=== PATIENT | male | born 1955 | race Caucasian/White ===

== ENCOUNTER 2017-06-03 09:41 | Emergency (ER) | payer MEDICARE, MEDICAID ==
[2017-06-03 11:00] LABS: BASO # 0.1 10^3/uL (0.0-0.2); BASO % 0.6 % (0.0-1.0); EOS # 0.3 10^3/uL (0.0-0.50); EOS % 2.6 % (0.0-3.0); HEMATOCRIT 43.6 % (42.0-52.0); HEMOGLOBIN 14.8 g/dl (14.0-18.0); IMMATURE GRANULOCYTE % 0.7 % (0-3.0); LYMPH # 1.5 10^3/uL (1.5-4.5); LYMPH % 15.8 % (24.0-44.0); MEAN CORPUSCULAR HEMOGLOBIN 27.7 pg (27.0-33.0); MEAN CORPUSCULAR HGB CONC 33.9 g/dl (32.0-36.5); MEAN CORPUSCULAR VOLUME 81.5 fl (80.0-96.0); MONO # 0.8 10^3/uL (0.0-0.8); MONO % 8.2 % (0.0-5.0); NEUTROPHILS % 72.1 % (36.0-66.0); PLATELET COUNT, AUTOMATED 219 10^3/uL (150-450); RED BLOOD COUNT 5.35 10^6/uL (4.30-6.10); RED CELL DISTRIBUTION WIDTH 12.9 % (11.5-14.5); WHITE BLOOD COUNT 9.7 10^3/uL (4.0-10.0)
[2017-06-03 11:31] LABS: ALBUMIN 3.4 GM/DL (3.2-5.2); ALBUMIN/GLOBULIN RATIO 0.81 (1.00-1.93); ALKALINE PHOSPHATASE 108 U/L (45-117); ALT/SGPT 17 U/L (12-78); ANION GAP 7 MEQ/L (8-16); AST/SGOT 10 U/L (7-37); BILIRUBIN,TOTAL 0.7 MG/DL (0.2-1.0); BLOOD UREA NITROGEN 24 MG/DL (7-18); CARBON DIOXIDE LEVEL 29 MEQ/L (21-32); CHLORIDE LEVEL 96 MEQ/L (98-107); CREATININE FOR GFR 1.66 MG/DL (0.70-1.30); GLOMERULAR FILTRATION RATE 45.2 (>49); GLUCOSE, FASTING 231 MG/DL (70-100); POTASSIUM SERUM 4.3 MEQ/L (3.5-5.1); SODIUM LEVEL 132 MEQ/L (136-145); TOTAL PROTEIN 7.6 GM/DL (6.4-8.2)
== END 2017-06-03 13:03 | disposition home or self-care (01) ==
LOC: M ED 09:41
DX: K56.7 Ileus, unspecified (principal); I10 Essential (primary) hypertension; E11.9 Type 2 diabetes mellitus without complications; G47.30 Sleep apnea, unspecified; K21.9 Gastro-esophageal reflux disease without esophagitis; I25.2 Old myocardial infarction; F41.9 Anxiety disorder, unspecified; Z79.4 Long term (current) use of insulin; Z79.82 Long term (current) use of aspirin; Z79.899 Other long term (current) drug therapy; Z88.1 Allergy status to other antibiotic agents; Z98.890 Other specified postprocedural states; Z87.19 Personal history of other diseases of the digestive system; Z87.442 Personal history of urinary calculi; Z87.448 Personal history of other diseases of urinary system
CPT/HCPCS: 74021

== ENCOUNTER 2017-07-01 16:06 | Emergency (ER) | payer MEDICARE, MEDICAID ==
[2017-07-01] MEDS: CYCLOBENZAPRINE 10 MG TAB PO (17:00)
[2017-07-01] MEDS: IBUPROFEN 600 MG TAB PO (17:00)
== END 2017-07-01 17:08 | disposition home or self-care (01) ==
LOC: M ED 16:06
DX: S39.012A Strain of muscle, fascia and tendon of lower back, initial encounter (principal); W10.9XXA Fall (on) (from) unspecified stairs and steps, initial encounter; Y92.89 Other specified places as the place of occurrence of the external cause; E11.9 Type 2 diabetes mellitus without complications; I10 Essential (primary) hypertension; K21.9 Gastro-esophageal reflux disease without esophagitis; Z88.1 Allergy status to other antibiotic agents; Z79.4 Long term (current) use of insulin; Z79.899 Other long term (current) drug therapy; Z79.82 Long term (current) use of aspirin
CPT/HCPCS: 99283

== ENCOUNTER 2017-09-17 09:15 | Day surgery (SDC) | payer MEDICARE, MEDICAID ==
[~2017-09-17 09:15] MED LIST: NS 1,000 ML IV
[2017-09-17] MEDS ORDERED: PROPOFOL 200 MG/20 ML VIAL As Ordered ×2 (12:00)
[2017-09-17] MEDS ORDERED: fentaNYL 100 MCG/2 ML INJECTION (J3010) As Ordered (12:19)
[2017-09-17] MEDS ORDERED: LIDOCAINE 2% INJ 100 MG/5 ML SDV (FOR ANES.) As Ordered (12:21)
== END 2017-09-17 13:28 | disposition home or self-care (01) ==
LOC: M OPP 09:15
DX: Z12.11 Encounter for screening for malignant neoplasm of colon (principal); Z86.010 Personal history of colon polyps; D13.1 Benign neoplasm of stomach; G47.30 Sleep apnea, unspecified; I10 Essential (primary) hypertension; F41.9 Anxiety disorder, unspecified; N40.0 Benign prostatic hyperplasia without lower urinary tract symptoms; E10.40 Type 1 diabetes mellitus with diabetic neuropathy, unspecified; Z79.4 Long term (current) use of insulin; Z79.82 Long term (current) use of aspirin; Z79.899 Other long term (current) drug therapy; Z96.41 Presence of insulin pump (external) (internal); Z90.49 Acquired absence of other specified parts of digestive tract; Z80.3 Family history of malignant neoplasm of breast; Z83.3 Family history of diabetes mellitus; Z82.49 Family history of ischemic heart disease and other diseases of the circulatory system
CPT/HCPCS: G0105

== ENCOUNTER 2018-04-05 11:39 | Emergency (ER) | payer MEDICARE, MEDICAID ==
[~2018-04-05] VITALS: Ht 188 cm; Wt 165.9 kg
[~2018-04-05 11:39] MED LIST changes: +/BACTSSTA PO; +/DOXA1TA; +ACET500T15 PO; +ACET50TA PO; +ALBU17IN INH; +AMBI10TA PO; +ASPI1TAB PO; +ASPI81TA7 PO; +ASPI81TA83; +ATEN100T PO; +BACT800T5 PO; +BASA100I SC; +CARD240T3 PO; +CARD300C4 PO; +CARV25TA PO; +CEPA0.1S MT; +CYCL10TA PO; +DILT240C47 PO; +HUMA100I SC; +HYDR-3363 PO; +HYDR-3910 PO; +HYDR25TA8 PO; +INSULANT SC; +LANTINJ4 SC; +LASI20TA3 PO; +LEVO750T PO; +LISI10TA4 PO; +LISI2.5T PO; +LISI20TA PO; +METF1000 PO; +METF500T4; +MONT10TA2 PO; +MUCI600T37 PO; +NAPR-50 PO; +NOVOINJ3 SC; -NS 1,000 ML IV; +OMEP20CA3 PO; +TYLE325T5 PO; +ZANT150T; +ZEST10TA5 PO; +ZOLP-189 PO; +cardura
[2018-04-05] MEDS ORDERED: VITA50005 PO (12:18)
[2018-04-05] MEDS ORDERED: MECLIZINE 25 MG TABLET PO ONE (12:30)
[2018-04-05] MEDS ORDERED: NS 1,000 ML IV ONE (12:30)
--- NOTE | 2018-04-05 12:58 | REP ---
CT Head without contrast HISTORY: Syncope COMPARISON: None Areas of decreased attenuation are present in the periventricular and subcortical white matter. This represents small-vessel ischemic disease. There is no intraparenchymal hemorrhage, acute infarct, mass or midline shift. The ventricular system and cortical sulci are dilated consistent with minimal volume loss. There is no extra cerebral collection. There is no fracture. The visualized sinuses are clear. IMPRESSION: 1. Small vessel ischemic disease. 2. Minimal volume loss. Electronically Signed by Francisco Mark MD 04/05/2018 12:50 P
--- NOTE | 2018-04-05 13:15 | REP ---
Chest x-ray: Single view. History: Syncope, near-syncope. Comparison chest x-ray: June 03, 2017. Findings: The lungs are mildly hyperinflated but free of infiltrate. Pleural angles are sharp. Heart size is normal. Pulmonary vasculature is not increased. No significant bony abnormality. Impression: No acute disease. Electronically Signed by Remington Emery MD 04/05/2018 07:16 P
[2018-04-05 14:01] LABS: BASO # 0.1 10^3/uL (0.0-0.2); BASO % 0.6 % (0.0-1.0); EOS # 0.2 10^3/uL (0.0-0.50); HEMATOCRIT 43.4 % (42.0-52.0); HEMOGLOBIN 14.9 g/dl (13.5-17.5); LYMPH # 1.5 10^3/uL (1.5-4.5); LYMPH % 15.3 % (24.0-44.0); MEAN CORPUSCULAR HEMOGLOBIN 28.4 pg (27.0-33.0); MEAN CORPUSCULAR HGB CONC 34.3 g/dl (32.0-36.5); MEAN CORPUSCULAR VOLUME 82.8 fl (80.0-96.0); MONO # 0.7 10^3/uL (0.0-0.8); MONO % 7.3 % (0.0-5.0); NEUTROPHILS # 7.2 10^3/uL (1.8-7.7); NEUTROPHILS % 74.3 % (36.0-66.0); PLATELET COUNT, AUTOMATED 215 10^3/uL (150-450); RED BLOOD COUNT 5.24 10^6/uL (4.30-6.10); WHITE BLOOD COUNT 9.7 10^3/uL (4.0-10.0)
[2018-04-05 14:13] LABS: INR 0.98; PROTHROMBIN TIME 13.1 SECONDS (12.1-14.4)
[2018-04-05 14:43] LABS: BLOOD UREA NITROGEN 26 MG/DL (7-18); CARBON DIOXIDE LEVEL 30 MEQ/L (21-32); CHLORIDE LEVEL 95 MEQ/L (98-107); CPK CREATINE PHOSPHOKINASE 71 U/L (39-308); CREATININE FOR GFR 1.78 MG/DL (0.70-1.30); GLOMERULAR FILTRATION RATE 41.6 (>49); GLUCOSE, FASTING 245 MG/DL (70-100); MB/CK RELATIVE INDEX 2.68 (< OR =4); SODIUM LEVEL 131 MEQ/L (136-145); TROPONIN I < 0.02 NG/ML (< 0.10)
[2018-04-05 15:21] VITALS: BP 151/86
--- NOTE | 2018-04-05 17:15 | ECGEPIP ---
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
== END 2018-04-05 15:35 | disposition home or self-care (01) ==
LOC: M ED 11:39
DX: R55 Syncope and collapse (principal); I10 Essential (primary) hypertension; E11.9 Type 2 diabetes mellitus without complications; I25.10 Atherosclerotic heart disease of native coronary artery without angina pectoris; K21.9 Gastro-esophageal reflux disease without esophagitis; Z79.899 Other long term (current) drug therapy; Z79.82 Long term (current) use of aspirin; Z79.4 Long term (current) use of insulin; Z88.1 Allergy status to other antibiotic agents

== ENCOUNTER → 2018-10-24 | Outpatient (REF) | payer MEDICARE, MEDICAID ==
[~2018-10-24] MED LIST changes: -/BACTSSTA PO; -/DOXA1TA; -ACET50TA PO; -ASPI1TAB PO; +ASPI81TA26 PO; +CARD1TAB4; +MAPA500T17 PO; -NAPR-50 PO; +NAPR-837 PO; +OMEP20CA4 PO; +SULF1TAB31 PO; +VITA50005 PO
== END ==
LOC: M LAB REF 18:32
PROVIDERS: ATTEND Podiatrist
DX: L03.039 Cellulitis of unspecified toe (principal); M79.672 Pain in left foot

== ENCOUNTER 2018-12-25 21:15 | Emergency (ER) | payer MEDICARE, MEDICAID ==
[~2018-12-25] VITALS: Ht 188 cm; Wt 165.9 kg
[~2018-12-25 21:15] MED LIST changes: -LISI20TA PO; +LISI20TA19 PO; +OMEP1CAP73 PO; -OMEP20CA4 PO
[2018-12-25] MEDS ORDERED: MUCI600T31 PO (21:24)
[2018-12-25] MEDS ORDERED: LANTINJ4 SC (21:24)
[2018-12-26] MEDS ORDERED: FLON1SPR NARES (00:27)
[2018-12-26] MEDS ORDERED: ACETAMINOPHEN 325 MG TAB PO ONE (00:30)
[2018-12-26 00:38] VITALS: BP 137/80
--- NOTE | 2018-12-26 00:51 | REP ---
Clinical: Cough and fever with sore throat . Comparison: 04/05/2018 . Technique: PA and lateral. Findings: The mediastinum and cardiac silhouette are normal. The lung vega demonstrate chronic-appearing changes without acute consolidation, effusion, or pneumothorax. The skeletal structures are intact and normal. Impression: 1. No acute cardiopulmonary process. Electronically Signed by Santiago Morley MD 12/26/2018 12:44 A
== END 2018-12-26 00:39 | disposition home or self-care (01) ==
LOC: M ED 21:15
DX: J06.9 Acute upper respiratory infection, unspecified (principal); B34.9 Viral infection, unspecified; J01.90 Acute sinusitis, unspecified; R09.81 Nasal congestion; R05 Cough; I25.2 Old myocardial infarction; E11.9 Type 2 diabetes mellitus without complications; Z87.442 Personal history of urinary calculi; Z79.82 Long term (current) use of aspirin; Z79.4 Long term (current) use of insulin; Z79.899 Other long term (current) drug therapy; Z88.8 Allergy status to other drugs, medicaments and biological substances; J30.89 Other allergic rhinitis

== ENCOUNTER 2019-01-16 06:27 | Day surgery (SDC) | payer MEDICARE, MEDICAID ==
[~2019-01-16] VITALS: Ht 188 cm; Wt 166.0 kg
[~2019-01-16 06:27] MED LIST changes: +FLON1SPR NARES; +MUCI600T31 PO; +NS 1,000 ML IV ONE; -OMEP1CAP73 PO; +OMEP20CA4 PO
[2019-01-16] MEDS ORDERED: LIDOCAINE 2% INJ 100 MG/5 ML SDV (FOR ANES.) As Ordered ONE ×2 (09:05→09:43)
[2019-01-16] MEDS ORDERED: PROPOFOL 200 MG/20 ML VIAL As Ordered ONE ×2 (09:05→09:43)
--- NOTE | 2019-01-16 10:03 | ROOR ---
Patient Name: Jeanmarie Shultz Procedure Date: 01/16/2019 9:30 AM Date of : 1955 Age: 63 Room: [facility] Gender: Male Note Status: Finalized Procedure: Upper GI endoscopy Indications: Surveillance for malignancy due to personal history of gastric adenoma (follow up on prepyloric adenomatous polyp 2017) Providers: Duke BEJARANO MD Referring MD: PADMA BINGHAM NP Requesting Provider: Medicines: Monitored Anesthesia Care Complications: No immediate complications. Procedure: Pre-Anesthesia Assessment: - The heart rate, respiratory rate, oxygen saturations, blood pressure, adequacy of pulmonary ventilation, and response to care were monitored throughout the procedure. The Endoscope was introduced through the mouth, and advanced to the second part of duodenum. The upper GI endoscopy was accomplished without difficulty. The patient tolerated the procedure well. Findings: The examined esophagus was normal. A single 6 mm semi-sessile polyp was found in the prepyloric region of the stomach. The polyp was removed with a hot snare. Resection and retrieval were complete. To prevent bleeding after the polypectomy, one hemostatic clip was successfully placed. A single 8 mm semi-sessile polyp was found at the incisura. The polyp was removed with a hot snare. Resection and retrieval were complete. To prevent bleeding after the polypectomy, one hemostatic clip was successfully placed. A single 12 mm pedunculated polyp with stigmata of recent bleeding was found in the gastric body. The polyp was removed with a hot snare. Resection and retrieval were complete. To prevent bleeding after the polypectomy, two hemostatic clips were successfully placed. There was no bleeding at the end of the procedure. Impression: - A single gastric polyp (residual 5-6 mm sessile, prepyloric). Resected and retrieved. Clip was placed. - A single gastric polyp. (8 mm,semipedunculated, incisura). Resected and retrieved. Clip was placed. - A single gastric polyp. (12 mm ,pedunculated, hemorrhagic appearing, body of stomach). Resected and retrieved. Clips were placed. - Normal Esophagus. - Normal Duodenum. Recommendation: - Telephone endoscopist for pathology results in 2 weeks. - Repeat upper endoscopy for surveillance based on pathology results. - Await pathology results. Duke Bejarano MD Duke BEJARANO MD 01/16/2019 10:03:17 AM Electronically signed by Duke BEJARANO MD Number of Addenda: 0 Note Initiated On: 01/16/2019 9:30 AM Estimated Blood Loss: Estimated blood loss: none.
[2019-01-16 10:30] VITALS: BP 158/73
== END 2019-01-16 14:18 | disposition home or self-care (01) ==
LOC: M OPP 06:27
PROVIDERS: ATTEND Internal Medicine Gastroenterology
DX: K31.7 Polyp of stomach and duodenum (principal); Z86.018 Personal history of other benign neoplasm; I10 Essential (primary) hypertension; K21.9 Gastro-esophageal reflux disease without esophagitis; E11.9 Type 2 diabetes mellitus without complications; Z79.4 Long term (current) use of insulin; Z79.82 Long term (current) use of aspirin; Z79.899 Other long term (current) drug therapy; Z88.8 Allergy status to other drugs, medicaments and biological substances

== ENCOUNTER → 2020-10-05 | Outpatient (REF) | payer MEDICARE, MEDICAID ==
[~2020-10-05] MED LIST changes: +CYCL-707 PO; -CYCL10TA PO; -LISI20TA19 PO; +LISI20TA35 PO; +MONT10TA10 PO; -MONT10TA2 PO; -NS 1,000 ML IV ONE; +OMEP1CAP73 PO; -OMEP20CA4 PO
== END ==
LOC: M LAB REF 17:16
PROVIDERS: ATTEND Internal Medicine Nephrology
DX: N18.31 Chronic kidney disease, stage 3a (principal); E11.22 Type 2 diabetes mellitus with diabetic chronic kidney disease; I12.9 Hypertensive chronic kidney disease with stage 1 through stage 4 chronic kidney disease, or unspecified chronic kidney disease

== ENCOUNTER → 2020-11-03 | Outpatient (CLI) | payer MEDICARE, MEDICAID ==
--- NOTE | 2020-11-03 16:59 | REP ---
INDICATION: HYPERTENSIVE CKD, DIABETES. COMPARISON: 06/07/2010. TECHNIQUE: Real-time sonographic evaluation of the kidneys is performed. FINDINGS: There is diffuse cortical thickening of the left kidney, with diffuse increased echotexture, suggesting medical renal disease.. There is no hydronephrosis bilaterally. There is a cyst of the upper left kidney measuring 2.6 x 2.4 x 2.4 cm. The right kidney measures 13.5 x 6.4 x 6.0 cm. Left renal dimensions are 12.9 x 5.4 x 5.4 cm. Urinary bladder is empty. IMPRESSION: No hydronephrosis bilaterally. Diffuse increased echotexture of the left kidney with cortical thinning. Left renal cyst 2.6 cm. <Electronically signed by Nicholas Houston > 11/03/20 [id number]
== END ==
LOC: M RAD 14:44
PROVIDERS: ATTEND Internal Medicine Nephrology
DX: I12.9 Hypertensive chronic kidney disease with stage 1 through stage 4 chronic kidney disease, or unspecified chronic kidney disease (principal); N18.32 Chronic kidney disease, stage 3b; E11.22 Type 2 diabetes mellitus with diabetic chronic kidney disease; N28.1 Cyst of kidney, acquired

== ENCOUNTER 2020-11-27 11:53 | Observation (INO) | payer MEDICARE, MEDICAID ==
[~2020-11-27] VITALS: Ht 188 cm; Wt 154.2 kg
[2020-11-27 13:53] LABS: BASO % 0.3 % (0.0-1.0); EOS % 0.1 % (0.0-3.0); HEMATOCRIT 43.4 % (42.0-52.0); HEMOGLOBIN 14.7 g/dl (13.5-17.5); LYMPH # 0.4 10^3/uL (1.5-5.0); LYMPH % 5.9 % (24.0-44.0); MEAN CORPUSCULAR HEMOGLOBIN 27.9 pg (27.0-33.0); MEAN CORPUSCULAR HGB CONC 33.9 g/dl (32.0-36.5); MEAN CORPUSCULAR VOLUME 82.4 fl (80.0-96.0); MONO # 0.5 10^3/uL (0.0-0.8); MONO % 7.4 % (2.0-8.0); NEUTROPHILS # 6.3 10^3/uL (1.5-8.5); NEUTROPHILS % 85.2 % (36.0-66.0); PLATELET COUNT, AUTOMATED 193 10^3/uL (150-450); RED BLOOD COUNT 5.27 10^6/uL (4.30-6.10); WHITE BLOOD COUNT 7.3 10^3/uL (4.0-10.0)
[2020-11-27 14:32] LABS: CALCIUM LEVEL 7.8 MG/DL (8.8-10.2); CREATININE FOR GFR 2.52 MG/DL (0.70-1.30); GLOMERULAR FILTRATION RATE 27.6 (>49); POTASSIUM SERUM 3.9 MEQ/L (3.5-5.1)
[2020-11-27 14:33] LABS: ALBUMIN 2.9 GM/DL (3.2-5.2); BILIRUBIN,TOTAL 1.5 MG/DL (0.2-1.0); MAGNESIUM LEVEL 1.6 MG/DL (1.8-2.4); TOTAL PROTEIN 6.8 GM/DL (6.4-8.2)
[2020-11-27] MEDS ORDERED: NS 1,000 ML IV ONE (14:35)
[2020-11-27] MEDS ORDERED: HumuLIN R (REGULAR) INSULIN (NovoLIN R) **100U/ML** PER UNIT IV ONE (14:40)
[2020-11-27] MEDS ORDERED: ACETAMINOPHEN TAB 650MG DOSE (2X325MG) PO PRN (16:05)
[2020-11-27] MEDS ORDERED: PINK BISMUTH SUSP 524MG/30ML ORAL SYRINGE PO PRN (16:05)
[2020-11-27] MEDS ORDERED: DEXTROSE 50% 50 ML SYRINGE IV PRN (16:05)
[2020-11-27] MEDS ORDERED: GLUCOSE 4GM CHEW TABLET PO PRN (16:05)
[2020-11-27] MEDS ORDERED: GLUCAGON INJ 1MG VIAL SC PRN (16:05)
[2020-11-27] MEDS ORDERED: ERGO500029 PO (16:12)
[2020-11-27] MEDS ORDERED: HYDR-3363 PO (16:12)
[2020-11-27] MEDS ORDERED: HOME MED LIST COMPLETE! XX SCH (16:15)
[2020-11-27 16:32] LABS: RSV AMPLIFICATION NEGATIVE (NEGATIVE)
[2020-11-27 16:51] LABS: HEMOGLOBIN A1c 11.9 %
--- NOTE | 2020-11-27 17:31 | HPEPDOC ---
[facility] Medical History & Physical Date of Admission Nov 27, 2020 Date of Service: Nov 27, 2020 History and Physical CHIEF COMPLAINT: Diarrhea, Dehydration HISTORY OF PRESENT ILLNESS: Patient is a 65 year old male presenting to the ED after calling EMS himself for dehydration due to his diarrhea. He states that yesterday night he started to feel alternating chills and night sweats and had one episode of diarrhea. This morning, he was having a lot of diarrhea (going to the bathroom every 10 minutes). It got so bad that sometime when he feels the urges, he can't make it to the toilet and he couldn't find his Imodium. He states that he is an insulin-dependent diabetic and his home sugars run between 300-400. He states that he feels the best around those numbers at home. He also states that he has CATIA and he uses a BIPAP machine at home and was worried that the hospital may not have the equipment as he needs his BIPAP in order to sleep. Patient was admitted to the hospitalist service for acute kidney failure, norovirus, hyponatremia. PAST MEDICAL HISTORY: 1. Insulin dependent Diabetes Mellitus 2. CKD Stage 3 3. CATIA - wears BIPAP 4. ?"silent heart attack" 5. Anxiety PAST SURGICAL HISTORY: 1. Cholecystectomy SOCIAL HISTORY: Tobacco use: denies any ETOH: denies any Illicit drug use: denies any IV drug use: denies any FAMILY HISTORY: reviewed and noncontributory ALLERGIES: Please see below. REVIEW OF SYSTEMS: CONSTITUTIONAL: +chills, + night sweats, denies fevers, HEENT: denies changes in vision and changes in hearing CARDIOVASCULAR: denies chest pain or palpitations RESPIRATORY: denies shortness of breath or wheezing GASTROINTESTINAL: +diarrhea, denies abdominal pain HOME MEDICATIONS: Please see below. PHYSICAL EXAMINATION: VITAL SIGNS: see below GENERAL APPEARANCE: anxious, well nourished; no acute distress HEENT: PERRLA, EOMI, no erythema in pharynx CARDIOVASCULAR: regular rate and rhythm; no murmurs noted LUNGS: clear to auscultation bilaterally; no crackles or wheezing noted ABDOMEN: obese abdomen; soft, nondistended, normoactive bowel sounds; no tenderness to palpation; no rebound tenderness; no suprapubic tenderness EXTREMITIES: ?possible psoriatic plaque on right anterior knee PSYCHIATRIC: anxious appearing LABORATORY DATA: See below. MICROBIOLOGY: Please see below. ASSESSMENT: The patient is a 65-year-old male presents with diarrhea found to have IDDM with hyperglycemia, acute kidney failure, Norovirus and hyponatremia. PLAN: Diarrhea due to Norovirus - in ED GI panel was obtained and found to have Norovirus - start prn Bismuth Subsalicylate for diarrhea control - start Lactated Ringer's @100ml/hr Insulin dependent Diabetes Mellitus with hyperglycemia - in ED glucose was 491; pt was give 16U of insulin in the ED and had fluid bolus - stop home insulin; start Levemir 50mg BID and insulin sliding scale for management of blood sugar - start Lactated Ringer's @100ml/hr Hyponatremia likely 2/2 hyperglycemia and well as Norovirus - start Lactated Ringer's @100ml/hr Hypomagnesemia likely 2/2 hyperglycemia - start Mag Run x 2 - will reevaluate Mg level in morning - hold home meds lisinopril and HCTZ Acute on Chronic Renal Failure possible 2/2 to dehydration 2/2 to diarrhea from Norovirus - start Lactated Ringer's @100ml/hr - hold home meds lisinopril and HCTZ - baseline unknown; CKD stage 3 - follows Dr. Szymanski outpatient HTN ?"Silent Heart attack" - continue home meds of aspirin carvedilol, diltiazem - hold home meds lisinopril and HCTZ CATIA - BIPAP - CATIA protocol - follows Dr. Eddy outpatient Anxiety - continue home med Hydroxyzine VTE prophylaxis - TEDs and Sequentials Vital Signs Vital Signs Date Time Temp Pulse Resp B/P (MAP) Pulse Ox O2 Delivery O2 Flow Rate FiO2 11/27/20 15:37 96.3 75 124/65 (84) 100 Room Air Laboratory Data Labs 24H Laboratory Tests 2 11/27/20 13:43: Immature Granulocyte % (Auto) 1.1, Neutrophils (%) (Auto) 85.2H, Lymphocytes (%) (Auto) 5.9L, Monocytes (%) (Auto) 7.4, Eosinophils (%) (Auto) 0.1, Basophils (%) (Auto) 0.3, Neutrophils # (Auto) 6.3, Lymphocytes # (Auto) 0.4L, Monocytes # (Auto) 0.5, Eosinophils # (Auto) 0.0, Basophils # (Auto) 0.0, Nucleated Red Blood Cells % (auto) 0.0, Anion Gap 9, Glomerular Filtration Rate 27.6L, Calcium Level 7.8L, Magnesium Level 1.6L, Total Bilirubin 1.5H, Aspartate Amino Transf (AST/SGOT) 16, Alanine Aminotransferase (ALT/SGPT) 17, Alkaline Phosphatase 94, Total Protein 6.8, Albumin 2.9L, Albumin/Globulin Ratio 0.7 11/27/20 15:24: CBC/BMP Laboratory Tests 11/27/20 13:43 Microbiology Microbiology 11/27/20 Gastrointestinal Tract Panel (PCR) - Final, Complete Norovirus Home Medications Scheduled Aspirin (Aspirin EC) 81 Mg Tab, 81 MG PO QHS Carvedilol (Carvedilol) 25 Mg Tab, 25 MG PO BID Diltiazem HCl (Diltiazem 24Hr ER) 240 Mg Cap, 240 MG PO QHS Ergocalciferol (Vitamin D2) (Vitamin D2) 50,000 Units Cap, 50,000 UNITS PO 1XWK Hydroxyzine HCl (Hydroxyzine HCl) 25 Mg Tab, 25 MG PO QAM Hydroxyzine HCl (Hydroxyzine HCl) 25 Mg Tablet, 50 MG PO BID QPM AND QHS Insulin Aspart (Novolog Flexpen) 100 Unit/Ml Inj, 1 DOSE SC AC PER SLIDING SCALE Insulin Glargine,Hum.rec.anlog (Lantus Solostar) 100 Unit/1 Ml Insuln.pen, 100 UNIT SC BID Lisinopril/Hydrochlorothiazide (Lisinopril-Hctz 20-12.5 mg Tab) 1 Tab Tab, 1 TAB PO BID Montelukast Sodium (Montelukast Sodium) 10 Mg Tab, 10 MG PO DAILY Omeprazole (Omeprazole) 20 Mg Cap, 20 MG PO DAILY TAKES AT DINNERTIME Scheduled PRN Acetaminophen (Acetaminophen) 500 Mg Tab, 500 MG PO for PAIN Allergies Coded Allergies: Cephalosporins (Verified Allergy, Severe, THROAT SWELLING, 12/31/18) Dust (Verified Adverse Reaction, Unknown, sneezing, 12/31/18) A-FIB/CHADSVASC A-FIB History Current/History of A-Fib/PAF?: No Current PO Anticoag Therapy: No GME ATTESTATION GME ATTESTATION My faculty preceptor for this patient encounter was physically present during the encounter and was fully available. All aspects of the patient interview, examination, medical decision making process, and medical care plan development were reviewed and approved by the faculty preceptor. The faculty preceptor is aware and concurs with the plan as stated in the body of this note and will at test to such by his/her cosignature. Nissa Cordon DO Nov 27, 2020 17:31
[2020-11-27 17:45] VITALS: BP 102/66
[2020-11-27] MEDS: MAG SULF 1GM/100ML (MAG RUN) 1 GM in IV 1 EA IV SCH ×2 (18:00→18:16)
[2020-11-27] MEDS: LR 1,000 ML IV SCH (18:16)
[2020-11-27] MEDS: HumaLOG INSULIN (NovoLOG) PER UNIT SC SCH ×2 (18:17→20:54)
[2020-11-27] MEDS: OMEPRAZOLE 20 MG CAP PO SCH (18:17)
[2020-11-27 20:41] VITALS: BP 114/52
[2020-11-27] MEDS: hydrOXYzine 25 MG TAB PO SCH (20:53)
[2020-11-27] MEDS: CARVedilol 12.5 MG TAB PO SCH (20:53)
[2020-11-27] MEDS: ASPIRIN 81MG ENTERIC TABLET PO SCH (20:54)
[2020-11-27] MEDS: LEVEMIR (INSULIN DETEMIR) 1 UNITS/0.01ML SC SCH (20:54)
[2020-11-27] MEDS: HEPARIN SOD (PORCINE) 5000UNITS/ML 1ML VIAL/SYRINGE SC SCH (20:54)
[2020-11-27] MEDS ORDERED: hydroCHLOROthiazide 12.5 MG CAPSULE PO SCH (21:00)
[2020-11-28] MEDS: LR 1,000 ML IV SCH ×3 (02:05→20:34)
[2020-11-28 04:25] VITALS: BP 123/66
[2020-11-28] MEDS: HEPARIN SOD (PORCINE) 5000UNITS/ML 1ML VIAL/SYRINGE SC SCH ×3 (04:30→20:31)
[2020-11-28] MEDS: HumaLOG INSULIN (NovoLOG) PER UNIT SC SCH ×4 (07:30→20:10)
[2020-11-28] MEDS: hydrOXYzine 25 MG TAB PO SCH ×3 (08:44→20:33)
[2020-11-28] MEDS: LEVEMIR (INSULIN DETEMIR) 1 UNITS/0.01ML SC SCH ×2 (08:45→20:21)
[2020-11-28] MEDS: MONTELUKAST 10 MG TAB PO SCH (08:45)
[2020-11-28] MEDS: CARVedilol 12.5 MG TAB PO SCH ×2 (08:46→20:33)
[2020-11-28] MEDS: FIBER-CON 625 MG TAB PO SCH ×2 (09:00→20:33)
[2020-11-28] MEDS: METAMUCIL (PSYLLIUM) PACKET PO SCH ×2 (09:00→20:31)
[2020-11-28 10:44] LABS: HEMATOCRIT 44.4 % (42.0-52.0); MEAN CORPUSCULAR HEMOGLOBIN 27.9 pg (27.0-33.0); MEAN CORPUSCULAR HGB CONC 33.8 g/dl (32.0-36.5); MEAN CORPUSCULAR VOLUME 82.7 fl (80.0-96.0); PLATELET COUNT, AUTOMATED 219 10^3/uL (150-450); RED BLOOD COUNT 5.37 10^6/uL (4.30-6.10)
[2020-11-28] MEDS ORDERED: ALBUTEROL SULFATE 2.5 MG/0.5 ML INH NEB SOLN INH PRN (10:45)
--- NOTE | 2020-11-28 10:46 | IPNPDOC ---
Text Note Date of Service The patient was seen on 11/28/20. NOTE Subjective: Patient is a 65-year-old male with a PMHx of HTN, Hx of CA, Asthma, CATIA on BIPAP, IDDM2, DLP, CKD3, Anxiety, Vitamin Deficiency, GERD who presented to the ER via EMS because of profuse diarrhea. Patient was admitted to the hospital service for further evaluation and treatment. In the ER, patient had a GI panel that was positive for norovirus. Patient was seen and examined at the bedside. Currently denies any chest pain, shortness of breath, palpitations, reported nausea without any significant vomiting. Denies any abdominal pain, still reports significant diarrhea. Denies any urinary discomfort. Objective: Vitals (See below) General: Lying in bed, appears comfortable, AAOx3 HEENT: NC, AT CVS: +S1S2 Lungs: Fair air entry b/l, no evidence of wheezing, rales or rhonchi Abdomen: Soft, ND, NT, morbidly obese Extremities: Lower extremities are without edema Imaging: N/A Assessment and plan: Diarrhea - likely 2/2 norovirus - Patient still reports significant diarrhea - He is hemodynamically stable and afebrile - No leukocytosis - GI panel 11/27: Norovirus - c/w IV fluids Hyponatremia - likely 2/2 pseudohyponatremia - 2/2 hyperglycemia - Corrected sodium is normal - c/w IV fluid hydration for above Hypomagnesemia - Labs this morning are pending - Will supplement as required ALYSSIA on CKD3 - Cr baseline unclear; however in 2018 Cr was 1.6-1.7 - Cr currently is elevated from that baseline - Urine sample has not yet been collected - Awaiting UA / Awaiting Urine electrolytes / Nursing staff advised IDDM2 with hyperglycemia - Patient's A1c is significantly elevated at 11.9 - c/w ISS and Levemir DLP - Currently not on a statin - c/w ASA HTN - BP well controlled - Will hold Lisinopril / HCTZ (re: Elevated Cr) - c/w Carvedilol / Diltiazem; added hold parameters to medications CATIA on BIPAP - Setting verified from [facility] - c/w BIPAP while inpatient - Follows with Dr. Eddy as an outpatient Anxiety -c/w Hydroxyzine Asthma - No evidence of exacerbation - c/w inhaled therapy as ordered Vitamin Deficiency - Will resume supplementation on discharge GERD - c/w Omeprazole DVT prophylaxis - c/w Heparin Disposition: - Awaiting clinical improvement VS,Saúl, I+O VS, Saúl, I+O Laboratory Tests 11/27/20 13:43 Vital Signs Date Time Temp Pulse Resp B/P (MAP) Pulse Ox O2 Delivery O2 Flow Rate FiO2 11/28/20 08:46 82 96/57 11/28/20 04:25 97.4 18 96 Room Air I&O- Last 24 Hours up to 6 AM 11/28/20 06:00 Intake Total 1560 ml Output Total 1250 ml Balance 310 ml KEVON GARCIA MD Nov 28, 2020 10:46
[2020-11-28 11:02] LABS: BASO % 0.3 % (0.0-1.0); EOS % 0.3 % (0.0-3.0); LYMPH # 0.8 10^3/uL (1.5-5.0); LYMPH % 10.1 % (24.0-44.0); MONO # 0.9 10^3/uL (0.0-0.8); MONO % 10.9 % (2.0-8.0); NEUTROPHILS # 6.1 10^3/uL (1.5-8.5); NEUTROPHILS % 77.6 % (36.0-66.0)
[2020-11-28 11:16] LABS: ALBUMIN 2.8 GM/DL (3.2-5.2); BILIRUBIN,TOTAL 0.6 MG/DL (0.2-1.0); CALCIUM LEVEL 7.7 MG/DL (8.8-10.2); CREATININE FOR GFR 2.37 MG/DL (0.70-1.30); GLOMERULAR FILTRATION RATE 29.6 (>49); MAGNESIUM LEVEL 2.1 MG/DL (1.8-2.4); POTASSIUM SERUM 4.1 MEQ/L (3.5-5.1); TOTAL PROTEIN 6.9 GM/DL (6.4-8.2)
[2020-11-28 14:00] VITALS: BP 96/58
[2020-11-28] MEDS: OMEPRAZOLE 20 MG CAP PO SCH (17:37)
[2020-11-28 20:05] VITALS: BP 126/70
[2020-11-28] MEDS: ASPIRIN 81MG ENTERIC TABLET PO SCH (20:33)
[2020-11-29 04:53] VITALS: BP 119/64
[2020-11-29] MEDS: LR 1,000 ML IV SCH ×2 (04:53→13:09)
[2020-11-29] MEDS: HEPARIN SOD (PORCINE) 5000UNITS/ML 1ML VIAL/SYRINGE SC SCH ×2 (04:53→14:00)
[2020-11-29] MEDS: HumaLOG INSULIN (NovoLOG) PER UNIT SC SCH ×2 (07:30→12:34)
[2020-11-29 08:05] LABS: MEAN CORPUSCULAR HEMOGLOBIN 27.7 pg (27.0-33.0); MEAN CORPUSCULAR HGB CONC 33.3 g/dl (32.0-36.5); MEAN CORPUSCULAR VOLUME 83.2 fl (80.0-96.0); PLATELET COUNT, AUTOMATED 163 10^3/uL (150-450); RED BLOOD COUNT 4.69 10^6/uL (4.30-6.10); WHITE BLOOD COUNT 6.3 10^3/uL (4.0-10.0)
[2020-11-29 08:24] LABS: CALCIUM LEVEL 7.5 MG/DL (8.8-10.2); CREATININE FOR GFR 1.64 MG/DL (0.70-1.30); GLOMERULAR FILTRATION RATE 45.3 (>49); POTASSIUM SERUM 3.3 MEQ/L (3.5-5.1)
[2020-11-29] MEDS: METAMUCIL (PSYLLIUM) PACKET PO SCH (08:35)
[2020-11-29] MEDS: hydrOXYzine 25 MG TAB PO SCH (08:36)
[2020-11-29 08:38] VITALS: BP 120/66
[2020-11-29] MEDS: FIBER-CON 625 MG TAB PO SCH (08:38)
[2020-11-29] MEDS: CARVedilol 12.5 MG TAB PO SCH (08:38)
[2020-11-29] MEDS: MONTELUKAST 10 MG TAB PO SCH (08:39)
[2020-11-29] MEDS: LEVEMIR (INSULIN DETEMIR) 1 UNITS/0.01ML SC SCH (08:39)
[2020-11-29] MEDS ORDERED: POTASSIUM CHLORIDE 10 MEQ SR TABLET PO ONE (09:00)
--- NOTE | 2020-11-29 18:00 | DS.PDOC ---
Discharge Summary General Date of Admission Nov 27, 2020 at 11:54 Date of Discharge November 29, 2020 Discharge Summary PROCEDURES PERFORMED DURING STAY: None ADMITTING DIAGNOSES: 1. Diarrhea (Norovirus) and Dehydration DISCHARGE DIAGNOSES: 1. Norovirus COMPLICATIONS/CHIEF COMPLAINT: Acute Kidney Failure, Norovirus, Hyponatremia. HISTORY OF PRESENT ILLNESS: Patient is a 65 year old male with PMHX of HTN, Hx of [place], Asthma, CATIA on BIPAP, IDDM2, DLP, CKD3, Anxiety, Vitamin Deficiency, GERD presenting to the ED after calling EMS himself for dehydration due to his diarrhea. He states that yesterday night he started to feel alternating chills and night sweats and had one episode of diarrhea. Follow day, he was having diarrhea every 10 minutes. Patient was admitted to the hospitalist service for acute kidney failure, norovirus, hyponatremia. HOSPITAL COURSE: In the ED a GI panel was obtained and found to have Norovirus. Labs were obtained which showed electrolyte abnormalities as well as ALYSSIA on CKD3. Hyponatremia likely due to hyperglycemia as patient's glucose was 491 on admission; he was started on Lactated Ringer's for hydration and his sodium levels uptrended to baseline. For his hyperglycemia, he was placed on Gpbuasb-Gsofhav-Vnqwg and Levemir. Hypomagnesemia which improved after supplementation. His creatinine was found to be elevated from his baseline 1.6- 1.7 (from 2019); after IV fluids, it trended down to baseline. Patient also had hypokalemia which was supplemented as well. After his diarrhea became more solid (ribbon-like) and he could tolerate solid food, patient was discharged. DISCHARGE MEDICATIONS: Please see below. ALLERGIES: Please see below. PHYSICAL EXAMINATION ON DISCHARGE: VITAL SIGNS: Please see below. GENERAL: in no acute distress HEENT: PERRLA, EOMI, no erythema in pharynx CARDIOVASCULAR EXAMINATION: regular rate and rhythm; no murmurs noted RESPIRATORY EXAMINATION: clear to auscultation bilaterally; no crackles or wheezing noted ABDOMINAL EXAMINATION: obese abdomen; soft, nondistended, normoactive bowel sounds; no tenderness to palpation EXTREMITIES: no pitting edema bilateral lower extremities LABORATORY DATA: Please see below. IMAGING: none PROGNOSIS: Good ACTIVITY: As tolerated DIET: As tolerated; Renal and Consistent Carbohydrate Diet DISPOSITION: 01 Home, Self-Care. DISCHARGE INSTRUCTIONS: 1. Please f/u with PCP within 2 weeks 2. If symptoms gets worse, please go to the ER for further evaluation. DISCHARGE CONDITION: Stable TIME SPENT ON DISCHARGE: 31 minutes. Vital Signs/I&Os Vital Signs Date Time Temp Pulse Resp B/P (MAP) Pulse Ox O2 Delivery O2 Flow Rate FiO2 11/29/20 08:38 70 120/66 11/29/20 04:53 97.2 16 97 Room Air I&O- Last 24 Hours up to 6 AM 11/29/20 06:00 Intake Total 3800 ml Output Total 800 ml Balance 3000 ml Laboratory Data Labs 24H Laboratory Tests 2 11/28/20 20:10: Bedside Glucose (Misc Panel) 113 11/29/20 00:02: Bedside Glucose (Misc Panel) 91 11/29/20 06:46: Bedside Glucose (Misc Panel) 106 11/29/20 07:48: Nucleated Red Blood Cells % (auto) 0.0, Anion Gap 7L, Glomerular Filtration Rate 45.3L, Calcium Level 7.5L 11/29/20 12:06: Bedside Glucose (Misc Panel) 203H CBC/BMP Laboratory Tests 11/29/20 07:48 FSBS Laboratory Tests Test 11/28/20 20:10 11/29/20 00:02 11/29/20 06:46 11/29/20 12:06 Range/Units Bedside Glucose (Misc Panel) 113 91 106 203 80-115 MG/DL Microbiology Microbiology 11/27/20 Gastrointestinal Tract Panel (PCR) - Final, Complete Norovirus Discharge Medications Scheduled Aspirin (Aspirin EC) 81 Mg Tab, 81 MG PO QHS, (Reported) Carvedilol (Carvedilol) 25 Mg Tab, 25 MG PO BID, (Reported) Diltiazem HCl (Diltiazem 24Hr ER) 240 Mg Cap, 240 MG PO QHS, (Reported) Ergocalciferol (Vitamin D2) (Vitamin D2) 50,000 Units Cap, 50,000 UNITS PO 1XWK, (Reported) Hydroxyzine HCl (Hydroxyzine HCl) 25 Mg Tab, 25 MG PO QAM, (Reported) Hydroxyzine HCl (Hydroxyzine HCl) 25 Mg Tablet, 50 MG PO BID, (Reported) QPM AND QHS Insulin Aspart (Novolog Flexpen) 100 Unit/Ml Inj, 1 DOSE SC AC, (Reported) PER SLIDING SCALE Insulin Glargine,Hum.rec.anlog (Lantus Solostar) 100 Unit/1 Ml Insuln.pen, 100 UNIT SC BID, (Reported) Montelukast Sodium (Montelukast Sodium) 10 Mg Tab, 10 MG PO DAILY, (Reported) Omeprazole (Omeprazole) 20 Mg Cap, 20 MG PO DAILY, (Reported) TAKES AT DINNERTIME Scheduled PRN Acetaminophen (Acetaminophen) 500 Mg Tab, 500 MG PO for PAIN, (Reported) Allergies Coded Allergies: Cephalosporins (Verified Allergy, Severe, THROAT SWELLING, 12/31/18) Dust (Verified Adverse Reaction, Unknown, sneezing, 12/31/18) GME ATTESTATION GME ATTESTATION My faculty preceptor for this patient encounter was physically present during the encounter and was fully available. All aspects of the patient interview, examination, medical decision making process, and medical care plan development were reviewed and approved by the faculty preceptor. The faculty preceptor is aw are and concurs with the plan as stated in the body of this note and will attest to such by his/her cosignature. Nissa Cordon DO Nov 29, 2020 17:44
== END 2020-11-29 15:10 | disposition home or self-care (01) ==
LOC: M ED 11:53 → M ED INP 11:54 → ENRESERV 17:06 → M MS5PR 17:42
PROVIDERS: ADMIT Internal Medicine; ATTEND Internal Medicine
DX: A08.11 Acute gastroenteropathy due to Norwalk agent (principal); N17.9 Acute kidney failure, unspecified; E87.1 Hypo-osmolality and hyponatremia; R19.7 Diarrhea, unspecified; E86.0 Dehydration; I12.9 Hypertensive chronic kidney disease with stage 1 through stage 4 chronic kidney disease, or unspecified chronic kidney disease; I25.2 Old myocardial infarction; J45.909 Unspecified asthma, uncomplicated; G47.33 Obstructive sleep apnea (adult) (pediatric); E11.65 Type 2 diabetes mellitus with hyperglycemia; E55.9 Vitamin D deficiency, unspecified; K21.9 Gastro-esophageal reflux disease without esophagitis; Z79.82 Long term (current) use of aspirin; Z79.4 Long term (current) use of insulin; Z79.899 Other long term (current) drug therapy; Z88.1 Allergy status to other antibiotic agents
CPT/HCPCS: 36415; 80048; 80053; 82570; 83036; 83735; 83930; 83935; 84100; 84300; 85025; 85027; 87505; 87631; 94660; 96361; 96374; 96375; 96376; 97161; 97530; 99284; G0378; J1644; J3475

== ENCOUNTER → 2020-12-15 | Outpatient (REF) | payer MEDICARE, MEDICAID ==
[~2020-12-15] MED LIST changes: +ERGO500029 PO
== END ==
LOC: M LAB REF 16:52
PROVIDERS: ATTEND Internal Medicine Nephrology
DX: N18.32 Chronic kidney disease, stage 3b (principal)

== ENCOUNTER → 2021-05-12 | Outpatient (REF) | payer MEDICARE, MEDICAID ==
[~2021-05-12] MED LIST changes: -MONT10TA10 PO; +MONT10TA97 PO
== END ==
LOC: M LAB REF 15:42
PROVIDERS: ATTEND Podiatrist
DX: M79.671 Pain in right foot (principal); L03.031 Cellulitis of right toe

== ENCOUNTER 2021-10-28 07:56 | Inpatient (IN) | payer MEDICARE, MEDICAID ==
[~2021-10-28] VITALS: Ht 188 cm; Wt 160.8 kg
[2021-10-28] MEDS ORDERED: LISI20TA33 (08:20)
[2021-10-28] MEDS ORDERED: NITROGLYCERIN 2% OINT 1 GM *U/D* PKT TOP ONE (08:45)
[2021-10-28 08:59] LABS: BASO # 0.1 10^3/uL (0.0-0.2); BASO % 0.6 % (0.0-1.0); EOS # 0.2 10^3/uL (0.0-0.5); HEMATOCRIT 43.3 % (42.0-52.0); HEMOGLOBIN 14.5 g/dl (13.5-17.5); LYMPH # 1.1 10^3/uL (1.5-5.0); LYMPH % 13.4 % (24.0-44.0); MEAN CORPUSCULAR HEMOGLOBIN 28.1 pg (27.0-33.0); MEAN CORPUSCULAR HGB CONC 33.5 g/dl (32.0-36.5); MEAN CORPUSCULAR VOLUME 83.9 fl (80.0-96.0); MONO # 0.5 10^3/uL (0.0-0.8); MONO % 6.4 % (2.0-8.0); NEUTROPHILS # 6.4 10^3/uL (1.5-8.5); NEUTROPHILS % 76.8 % (36.0-66.0); PLATELET COUNT, AUTOMATED 200 10^3/uL (150-450); RED BLOOD COUNT 5.16 10^6/uL (4.30-6.10); WHITE BLOOD COUNT 8.4 10^3/uL (4.0-10.0)
[2021-10-28 09:25] LABS: INR 1.01; PROTHROMBIN TIME 13.7 SECONDS (12.7-14.5)
[2021-10-28 09:26] LABS: CK-MB VALUE MASS 2.8 NG/ML (<3.6); MB/CK RELATIVE INDEX 3.11 (< OR =4)
[2021-10-28 09:56] LABS: CALCIUM LEVEL 9.2 MG/DL (8.8-10.2); CREATININE FOR GFR 1.86 MG/DL (0.70-1.30); POTASSIUM SERUM 4.7 MEQ/L (3.5-5.1)
[2021-10-28 09:57] LABS: ALBUMIN 2.8 GM/DL (3.2-5.2); BILIRUBIN,DIRECT 0.1 MG/DL (0.0-0.2); BILIRUBIN,TOTAL 0.6 MG/DL (0.2-1.0); THYROID STIMULATING HORMONE 2.52 uIU/ML (0.358-3.740); TOTAL PROTEIN 6.2 GM/DL (6.4-8.2)
[2021-10-28] MEDS ORDERED: FUROSEMIDE 100MG/10ML VIAL (J1940) IV ONE (10:05)
[2021-10-28] MEDS ORDERED: hydrALAZINE 20MG/ML 1ML VIAL (J0360 PER 20MG) IV ONE (10:30)
[2021-10-28] MEDS ORDERED: hydrALAZINE 20MG/ML 1ML VIAL (J0360 PER 20MG) IV PRN (11:25)
[2021-10-28] MEDS ORDERED: ACETAMINOPHEN TAB 650MG DOSE (2X325MG) PO PRN (11:25)
[2021-10-28] MEDS ORDERED: GLUCAGON INJ 1MG VIAL SC PRN (11:30)
[2021-10-28] MEDS ORDERED: GLUCOSE 4GM CHEW TABLET PO PRN (11:30)
[2021-10-28] MEDS ORDERED: DEXTROSE 50% 50 ML SYRINGE IV PRN (11:30)
[2021-10-28] MEDS ORDERED: LISI10TA22 PO (11:37)
[2021-10-28] MEDS ORDERED: HOME MED LIST COMPLETE! XX SCH (11:45)
[2021-10-28] MEDS ORDERED: ACETAMINOPHEN 500 MG TAB PO PRN (12:20)
[2021-10-28] MEDS: CARVedilol 12.5 MG TAB PO SCH ×2 (13:29→21:13)
[2021-10-28] MEDS: INSULIN LISPRO (NovoLOG) PER UNIT SC SCH ×3 (13:30→21:12)
[2021-10-28] MEDS: MONTELUKAST 10 MG TAB PO SCH (13:30)
[2021-10-28 13:49] LABS: CK-MB VALUE MASS 2.3 NG/ML (<3.6); MB/CK RELATIVE INDEX 2.5 (< OR =4)
[2021-10-28 13:57] LABS: CHOLESTEROL RISK RATIO 6.03 (<5)
[2021-10-28 14:33] LABS: HEMOGLOBIN A1c 8.7 %
[2021-10-28 15:57] VITALS: BP 182/82
[2021-10-28] MEDS: FUROSEMIDE 40MG/4ML VIAL (J1940) IV SCH (17:56)
[2021-10-28 20:00] VITALS: BP 170/84
[2021-10-28] MEDS ORDERED: LEVEMIR (INSULIN DETEMIR) 1 UNITS/0.01ML SC SCH (21:00)
[2021-10-28] MEDS: HEPARIN SOD (PORCINE) 5000UNITS/ML 1ML VIAL/SYRINGE SQ SCH (21:11)
[2021-10-28] MEDS: ASPIRIN 81MG ENTERIC TABLET PO SCH (21:12)
[2021-10-28] MEDS: OMEPRAZOLE 20MG CAP PO SCH (21:13)
[2021-10-29] VITALS (7 sets, daily range): BP systolic 160–170; BP diastolic 75–98
[2021-10-29] MEDS: FUROSEMIDE 40MG/4ML VIAL (J1940) IV SCH ×2 (01:47→13:02)
[2021-10-29 05:13] LABS: HEMATOCRIT 43.4 % (42.0-52.0); HEMOGLOBIN 14.4 g/dl (13.5-17.5); MEAN CORPUSCULAR HEMOGLOBIN 27.7 pg (27.0-33.0); MEAN CORPUSCULAR HGB CONC 33.2 g/dl (32.0-36.5); MEAN CORPUSCULAR VOLUME 83.6 fl (80.0-96.0); PLATELET COUNT, AUTOMATED 201 10^3/uL (150-450); RED BLOOD COUNT 5.19 10^6/uL (4.30-6.10); WHITE BLOOD COUNT 9.1 10^3/uL (4.0-10.0)
[2021-10-29 05:40] LABS: ALBUMIN 2.8 GM/DL (3.2-5.2); BILIRUBIN,TOTAL 0.8 MG/DL (0.2-1.0); CALCIUM LEVEL 8.8 MG/DL (8.8-10.2); CREATININE FOR GFR 2.01 MG/DL (0.70-1.30); GLOMERULAR FILTRATION RATE 35.7 (>49); POTASSIUM SERUM 3.8 MEQ/L (3.5-5.1); TOTAL PROTEIN 6.4 GM/DL (6.4-8.2)
[2021-10-29] MEDS: MONTELUKAST 10 MG TAB PO SCH (08:02)
[2021-10-29] MEDS: amLODIPine 5 MG TAB PO SCH (08:03)
[2021-10-29] MEDS: CARVedilol 12.5 MG TAB PO SCH ×2 (08:03→22:23)
[2021-10-29] MEDS: INSULIN LISPRO (NovoLOG) PER UNIT SC SCH ×4 (08:04→22:00)
[2021-10-29] MEDS: HEPARIN SOD (PORCINE) 5000UNITS/ML 1ML VIAL/SYRINGE SQ SCH ×2 (08:04→22:22)
[2021-10-29] MEDS: LEVEMIR (INSULIN DETEMIR) 1 UNITS/0.01ML SC SCH ×2 (08:05→22:21)
[2021-10-29] MEDS: ASPIRIN 81MG ENTERIC TABLET PO SCH (22:25)
[2021-10-29] MEDS: OMEPRAZOLE 20MG CAP PO SCH (22:30)
[2021-10-30] VITALS: BP 140/60
[2021-10-30] MEDS: FUROSEMIDE 40MG/4ML VIAL (J1940) IV SCH ×2 (03:06→13:32)
[2021-10-30 04:00] VITALS: BP 166/84
[2021-10-30 06:15] LABS: HEMATOCRIT 42.8 % (42.0-52.0); MEAN CORPUSCULAR HEMOGLOBIN 27.9 pg (27.0-33.0); MEAN CORPUSCULAR HGB CONC 32.7 g/dl (32.0-36.5); MEAN CORPUSCULAR VOLUME 85.3 fl (80.0-96.0); PLATELET COUNT, AUTOMATED 187 10^3/uL (150-450); RED BLOOD COUNT 5.02 10^6/uL (4.30-6.10); WHITE BLOOD COUNT 8.1 10^3/uL (4.0-10.0)
[2021-10-30 06:43] LABS: ALBUMIN 2.6 GM/DL (3.2-5.2); BILIRUBIN,TOTAL 0.5 MG/DL (0.2-1.0); CALCIUM LEVEL 8.8 MG/DL (8.8-10.2); CREATININE FOR GFR 2.13 MG/DL (0.70-1.30); GLOMERULAR FILTRATION RATE 33.4 (>49); POTASSIUM SERUM 3.9 MEQ/L (3.5-5.1); TOTAL PROTEIN 5.8 GM/DL (6.4-8.2)
[2021-10-30 08:00] VITALS: BP 147/70
[2021-10-30] MEDS: HEPARIN SOD (PORCINE) 5000UNITS/ML 1ML VIAL/SYRINGE SQ SCH (08:11)
[2021-10-30] MEDS: INSULIN LISPRO (NovoLOG) PER UNIT SC SCH ×2 (08:11→12:04)
[2021-10-30] MEDS: LEVEMIR (INSULIN DETEMIR) 1 UNITS/0.01ML SC SCH (08:11)
[2021-10-30] MEDS: MONTELUKAST 10 MG TAB PO SCH (08:12)
[2021-10-30] MEDS: CARVedilol 12.5 MG TAB PO SCH (08:12)
[2021-10-30] MEDS: amLODIPine 5 MG TAB PO SCH (08:12)
[2021-10-30 12:52] VITALS: BP 168/72
[2021-10-30] MEDS ORDERED: LISI10TA22 PO (13:11)
[2021-10-30] MEDS ORDERED: LASI40TA9 PO (13:11)
== END 2021-10-30 15:09 | disposition home or self-care (01) | DRG 291 ==
LOC: M ED 07:56 → EDBD 07:56 → M ED INP 11:22 → ENRESERV 14:08 → M PCU 15:50
PROVIDERS: ADMIT Internal Medicine; ATTEND Internal Medicine
PROC: B246ZZZ Ultrasonography of Right and Left Heart (ICD-10-PCS; principal; 2021-10-28)
DX: I13.0 Hypertensive heart and chronic kidney disease with heart failure and stage 1 through stage 4 chronic kidney disease, or unspecified chronic kidney disease (principal); I50.33 Acute on chronic diastolic (congestive) heart failure; N17.9 Acute kidney failure, unspecified; E11.22 Type 2 diabetes mellitus with diabetic chronic kidney disease; N18.30 Chronic kidney disease, stage 3 unspecified; G47.33 Obstructive sleep apnea (adult) (pediatric); F41.9 Anxiety disorder, unspecified; K21.9 Gastro-esophageal reflux disease without esophagitis; Z90.49 Acquired absence of other specified parts of digestive tract; I16.0 Hypertensive urgency; Z20.822 Contact with and (suspected) exposure to COVID-19; Z79.82 Long term (current) use of aspirin; Z79.4 Long term (current) use of insulin; Z79.899 Other long term (current) drug therapy; Z88.1 Allergy status to other antibiotic agents; Z88.8 Allergy status to other drugs, medicaments and biological substances; Z91.048 Other nonmedicinal substance allergy status; E66.01 Morbid (severe) obesity due to excess calories; I25.2 Old myocardial infarction; I25.10 Atherosclerotic heart disease of native coronary artery without angina pectoris; R19.7 Diarrhea, unspecified

== ENCOUNTER → 2022-03-06 | Outpatient (REF) | payer MEDICARE, MEDICAID ==
[~2022-03-06] MED LIST changes: +LASI40TA9 PO; +LISI10TA22 PO; +LISI20TA33
== END ==
LOC: M LAB REF 12:55
PROVIDERS: ATTEND Podiatrist
DX: L03.032 Cellulitis of left toe (principal); M79.672 Pain in left foot

== ENCOUNTER → 2022-04-25 | Outpatient (REF) | payer MEDICARE, MEDICAID ==
[2022-04-26 06:45] LABS: CREATININE, URINE 63.4 MG/DL
== END ==
LOC: M LAB REF 16:59
PROVIDERS: ATTEND Internal Medicine Nephrology
DX: N18.31 Chronic kidney disease, stage 3a (principal)

== ENCOUNTER 2022-06-21 10:21 | Emergency (ER) | payer MEDICARE, MEDICAID ==
[~2022-06-21] VITALS: Ht 188 cm; Wt 165.0 kg
[2022-06-21 11:15] LABS: BASO # 0.1 10^3/uL (0.0-0.2); BASO % 0.9 % (0.0-1.0); EOS # 0.2 10^3/uL (0.0-0.5); EOS % 2.6 % (0.0-3.0); HEMATOCRIT 39.5 % (42.0-52.0); HEMOGLOBIN 13.3 g/dl (13.5-17.5); LYMPH # 1.2 10^3/uL (1.5-5.0); LYMPH % 17.3 % (24.0-44.0); MEAN CORPUSCULAR HEMOGLOBIN 28.4 pg (27.0-33.0); MEAN CORPUSCULAR HGB CONC 33.7 g/dl (32.0-36.5); MEAN CORPUSCULAR VOLUME 84.4 fl (80.0-96.0); MONO # 0.5 10^3/uL (0.0-0.8); MONO % 7.1 % (2.0-8.0); NEUTROPHILS % 71.2 % (36.0-66.0); PLATELET COUNT, AUTOMATED 202 10^3/uL (150-450); RED BLOOD COUNT 4.68 10^6/uL (4.30-6.10)
[2022-06-21 11:37] LABS: INR 0.96
[2022-06-21 11:38] LABS: PARTIAL THROMBOPLASTIN TIME 27.3 SECONDS (24.8-34.2)
[2022-06-21 11:45] LABS: ALBUMIN 2.7 G/DL (3.2-5.2); BILIRUBIN,DIRECT 0.2 MG/DL (<0.4); BILIRUBIN,TOTAL 0.7 MG/DL (0.3-1.2); CALCIUM LEVEL 8.5 MG/DL (8.3-10.6); CK-MB VALUE MASS 1.9 NG/ML (<3.6); CREATININE FOR GFR 1.72 MG/DL (0.70-1.30); FREE T4 1.03 NG/DL (0.89-1.76); GLOMERULAR FILTRATION RATE 42.7 (>49); MB/CK RELATIVE INDEX 2.53 (< OR =4); POTASSIUM SERUM 4.6 MMOL/L (3.5-5.1); THYROID STIMULATING HORMONE 1.7 uIU/ML (0.55-4.78); TOTAL PROTEIN 5.8 G/DL (5.7-8.2)
[2022-06-21 12:03] LABS: RSV AMPLIFICATION NEGATIVE (NEGATIVE)
[2022-06-21 12:31] LABS: MB/CK RELATIVE INDEX 2.53 (< OR =4)
[2022-06-21] MEDS ORDERED: HumuLIN R (REGULAR) INSULIN (NovoLIN R) **100U/ML** PER UNIT IV ONE (12:55)
[2022-06-21] MEDS ORDERED: CARVedilol 12.5 MG TAB PO ONE (13:00)
[2022-06-21 13:16] VITALS: BP 208/86
[2022-06-21 13:18] LABS: HEMOGLOBIN A1c 10.8 % (4.0-6.0)
[2022-06-21] MEDS ORDERED: ISOVUE-370 76% 100ML VIAL As Ordered ONE (13:36)
[2022-06-21 15:00] VITALS: BP 159/80
== END 2022-06-21 15:52 | disposition home or self-care (01) ==
LOC: EDBD 10:21 → M ED 10:21
DX: E11.65 Type 2 diabetes mellitus with hyperglycemia (principal); R07.89 Other chest pain; I51.7 Cardiomegaly; R16.1 Splenomegaly, not elsewhere classified; R91.1 Solitary pulmonary nodule; R59.0 Localized enlarged lymph nodes; I25.10 Atherosclerotic heart disease of native coronary artery without angina pectoris; I50.9 Heart failure, unspecified; I25.2 Old myocardial infarction; I10 Essential (primary) hypertension; E78.5 Hyperlipidemia, unspecified; N40.0 Benign prostatic hyperplasia without lower urinary tract symptoms; K21.9 Gastro-esophageal reflux disease without esophagitis; M54.9 Dorsalgia, unspecified; Z87.01 Personal history of pneumonia (recurrent); Z82.49 Family history of ischemic heart disease and other diseases of the circulatory system; Z79.82 Long term (current) use of aspirin; Z79.4 Long term (current) use of insulin; Z79.899 Other long term (current) drug therapy
CPT/HCPCS: 71045; 71275; 80047; 80048; 80076; 82550; 82553; 83036; 83690; 83880; 84439; 84443; 84484; 85025; 85610; 85730; 87631; 93005; 93041; 94760; 99285; J1815; Q9967

== ENCOUNTER 2022-07-05 05:20 | Emergency (ER) | payer MEDICARE, MEDICAID ==
[~2022-07-05] VITALS: Ht 188 cm; Wt 164.6 kg
[2022-07-05 06:43] LABS: BASO # 0.1 10^3/uL (0.0-0.2); BASO % 0.4 % (0.0-1.0); EOS # 0.3 10^3/uL (0.0-0.5); EOS % 2.9 % (0.0-3.0); HEMATOCRIT 41.6 % (42.0-52.0); HEMATOCRIT 42.3 % (42.0-52.0); HEMOGLOBIN 13.8 g/dl (13.5-17.5); LYMPH # 1.5 10^3/uL (1.5-5.0); LYMPH % 13.2 % (24.0-44.0); MEAN CORPUSCULAR HEMOGLOBIN 27.7 pg (27.0-33.0); MEAN CORPUSCULAR HEMOGLOBIN 27.9 pg (27.0-33.0); MEAN CORPUSCULAR HGB CONC 32.6 g/dl (32.0-36.5); MEAN CORPUSCULAR HGB CONC 33.2 g/dl (32.0-36.5); MEAN CORPUSCULAR VOLUME 84.2 fl (80.0-96.0); MEAN CORPUSCULAR VOLUME 84.9 fl (80.0-96.0); MONO # 0.8 10^3/uL (0.0-0.8); MONO # 0.9 10^3/uL (0.0-0.8); MONO % 7.3 % (2.0-8.0); MONO % 7.8 % (2.0-8.0); NEUTROPHILS # 8.4 10^3/uL (1.5-8.5); NEUTROPHILS # 8.5 10^3/uL (1.5-8.5); NEUTROPHILS % 75.5 % (36.0-66.0); NEUTROPHILS % 75.6 % (36.0-66.0); PLATELET COUNT, AUTOMATED 218 10^3/uL (150-450); PLATELET COUNT, AUTOMATED 219 10^3/uL (150-450); RED BLOOD COUNT 4.94 10^6/uL (4.30-6.10); RED BLOOD COUNT 4.98 10^6/uL (4.30-6.10); WHITE BLOOD COUNT 11.2 10^3/uL (4.0-10.0); WHITE BLOOD COUNT 11.3 10^3/uL (4.0-10.0)
[2022-07-05 06:48] LABS: ALBUMIN 2.8 G/DL (3.2-5.2); BILIRUBIN,DIRECT 0.2 MG/DL (<0.4); BILIRUBIN,TOTAL 0.7 MG/DL (0.3-1.2); CALCIUM LEVEL 8.5 MG/DL (8.3-10.6); CK-MB VALUE MASS 1.9 NG/ML (<3.6); CREATININE FOR GFR 1.89 MG/DL (0.70-1.30); GLOMERULAR FILTRATION RATE 38.3 (>49); MB/CK RELATIVE INDEX 2.43 (< OR =4); POTASSIUM SERUM 4.7 MMOL/L (3.5-5.1); TOTAL PROTEIN 6.2 G/DL (5.7-8.2)
[2022-07-05 07:21] LABS: ALBUMIN 2.8 G/DL (3.2-5.2); BILIRUBIN,TOTAL 0.7 MG/DL (0.3-1.2); CALCIUM LEVEL 8.6 MG/DL (8.3-10.6); CREATININE FOR GFR 1.89 MG/DL (0.70-1.30); GLOMERULAR FILTRATION RATE 38.3 (>49); POTASSIUM SERUM 4.7 MMOL/L (3.5-5.1); TOTAL PROTEIN 6.2 G/DL (5.7-8.2)
[2022-07-05 07:57] VITALS: BP 180/94
== END 2022-07-05 08:07 | disposition home or self-care (01) ==
LOC: M ED 05:20
DX: R19.7 Diarrhea, unspecified (principal); I10 Essential (primary) hypertension; N18.30 Chronic kidney disease, stage 3 unspecified; G47.33 Obstructive sleep apnea (adult) (pediatric); E11.9 Type 2 diabetes mellitus without complications; Z88.1 Allergy status to other antibiotic agents; Z88.8 Allergy status to other drugs, medicaments and biological substances; Z79.899 Other long term (current) drug therapy; Z79.82 Long term (current) use of aspirin; Z79.4 Long term (current) use of insulin

== ENCOUNTER 2022-09-20 19:09 | Emergency (ER) | payer MEDICARE, MEDICAID ==
[~2022-09-20] VITALS: Ht 190.5 cm; Wt 160.9 kg
[2022-09-20 19:39] LABS: BASO # 0.1 10^3/uL (0.0-0.2); BASO % 0.7 % (0.0-1.0); EOS # 0.3 10^3/uL (0.0-0.5); HEMATOCRIT 38.4 % (42.0-52.0); HEMOGLOBIN 12.5 g/dl (13.5-17.5); LYMPH # 1.6 10^3/uL (1.5-5.0); LYMPH % 18.2 % (24.0-44.0); MEAN CORPUSCULAR HEMOGLOBIN 27.5 pg (27.0-33.0); MEAN CORPUSCULAR HGB CONC 32.6 g/dl (32.0-36.5); MEAN CORPUSCULAR VOLUME 84.4 fl (80.0-96.0); MONO # 0.7 10^3/uL (0.0-0.8); MONO % 7.8 % (2.0-8.0); NEUTROPHILS % 69.8 % (36.0-66.0); PLATELET COUNT, AUTOMATED 221 10^3/uL (150-450); RED BLOOD COUNT 4.55 10^6/uL (4.30-6.10); WHITE BLOOD COUNT 8.6 10^3/uL (4.0-10.0)
[2022-09-20 20:15] LABS: CK-MB VALUE MASS 2.1 NG/ML (<3.6)
[2022-09-20 20:17] LABS: ALBUMIN 2.3 G/DL (3.2-5.2); ALKALINE PHOSPHATASE 106 U/L (46-116); ALT/SGPT < 9 U/L (7.0-40); AST/SGOT 10 U/L (<34); BILIRUBIN,TOTAL 0.4 MG/DL (0.3-1.2); BLOOD UREA NITROGEN 29 MG/DL (9-23); CARBON DIOXIDE LEVEL 23 MMOL/L (20-31); CHLORIDE LEVEL 105 MMOL/L (98-107); CREATININE FOR GFR 1.75 MG/DL (0.70-1.30); GLOMERULAR FILTRATION RATE 41.9 (>49); GLUCOSE, FASTING 277 MG/DL (74-106); POTASSIUM SERUM 3.9 MMOL/L (3.5-5.1); SODIUM LEVEL 135 MMOL/L (136-145); TOTAL PROTEIN 5.4 G/DL (5.7-8.2)
[2022-09-20 20:18] LABS: CPK CREATINE PHOSPHOKINASE 71 U/L (46-171); MB/CK RELATIVE INDEX 2.95 (< OR =4)
[2022-09-20 21:06] LABS: CK-MB VALUE MASS 3.1 NG/ML (<3.6)
[2022-09-20 21:07] LABS: MB/CK RELATIVE INDEX 3.69 (< OR =4)
[2022-09-20 23:19] LABS: CK-MB VALUE MASS 3.3 NG/ML (<3.6)
[2022-09-20 23:30] LABS: MB/CK RELATIVE INDEX 3.7 (< OR =4)
[2022-09-20] MEDS ORDERED: HEPARIN DRIP 25,000 UNITS in IV 1 EA IV SCH (23:30)
[2022-09-21] MEDS ORDERED: ASPIRIN 81MG CHEW TABLET PO ONE (00:05)
[2022-09-21 01:05] LABS: INR 1.02; PROTHROMBIN TIME 13.6 SECONDS (12.5-14.5)
[2022-09-21 01:06] LABS: PARTIAL THROMBOPLASTIN TIME 31.5 SECONDS (24.8-34.2)
[2022-09-21 01:16] LABS: RSV AMPLIFICATION NEGATIVE (NEGATIVE)
[2022-09-21 02:43] VITALS: BP 156/73; TEMP 98.3; O2SAT 96
== END 2022-09-21 02:52 | disposition short-term general hospital (02) ==
LOC: EDBD 19:09 → M ED 19:09
DX: I21.4 Non-ST elevation (NSTEMI) myocardial infarction (principal); I50.9 Heart failure, unspecified; E11.9 Type 2 diabetes mellitus without complications; I10 Essential (primary) hypertension; N40.0 Benign prostatic hyperplasia without lower urinary tract symptoms; I51.7 Cardiomegaly; J30.89 Other allergic rhinitis; Z79.82 Long term (current) use of aspirin; Z79.4 Long term (current) use of insulin; Z79.899 Other long term (current) drug therapy; Z88.8 Allergy status to other drugs, medicaments and biological substances

== ENCOUNTER → 2022-12-14 | Outpatient (CLI) | payer MEDICARE, MEDICAID | LOC: M RAD 12:35 | PROVIDERS: ATTEND Surgery | DX: L97.922 Non-pressure chronic ulcer of unspecified part of left lower leg with fat layer exposed (principal); L97.512 Non-pressure chronic ulcer of other part of right foot with fat layer exposed; I70.92 Chronic total occlusion of artery of the extremities; M71.21 Synovial cyst of popliteal space [Baker], right knee; R68.89 Other general symptoms and signs ==

== ENCOUNTER 2023-02-05 15:59 | Emergency (ER) | payer MEDICARE, MEDICAID ==
[~2023-02-05 15:59] MED LIST changes: +ATOR80TA59; +CLOP75TA2; +COLC0.6T47; +FURO40TA2 PO; +HYDR10TAB; +PANT40TA29; +TAMS1CAP17
[2023-02-05 16:18] VITALS: BP 133/74; TEMP 97.5; O2SAT 95
[2023-02-05 17:19] LABS: BASO # 0.1 10^3/uL (0.0-0.2); BASO % 0.8 % (0.0-1.0); EOS # 0.2 10^3/uL (0.0-0.5); EOS % 3.6 % (0.0-3.0); HEMATOCRIT 36.5 % (42.0-52.0); HEMOGLOBIN 12.2 g/dl (13.5-17.5); LYMPH # 1.3 10^3/uL (1.5-5.0); LYMPH % 21.7 % (24.0-44.0); MEAN CORPUSCULAR HEMOGLOBIN 28.8 pg (27.0-33.0); MEAN CORPUSCULAR HGB CONC 33.4 g/dl (32.0-36.5); MEAN CORPUSCULAR VOLUME 86.1 fl (80.0-96.0); MONO # 0.6 10^3/uL (0.0-0.8); MONO % 9.4 % (2.0-8.0); NEUTROPHILS # 3.9 10^3/uL (1.5-8.5); NEUTROPHILS % 64.2 % (36.0-66.0); PLATELET COUNT, AUTOMATED 197 10^3/uL (150-450); RED BLOOD COUNT 4.24 10^6/uL (4.30-6.10); WHITE BLOOD COUNT 6.1 10^3/uL (4.0-10.0)
[2023-02-05 17:32] LABS: INR 1.15; PROTHROMBIN TIME 14.3 SECONDS (12.5-14.5)
[2023-02-05 17:33] LABS: PARTIAL THROMBOPLASTIN TIME 27.8 SECONDS (24.8-34.2)
[2023-02-05 17:42] LABS: C REACTIVE PROTEIN QUANTITATIV 0.5 MG/DL (<1.0)
[2023-02-05 17:43] LABS: ERYTHROCYTE SEDIMENTATION RATE 30 mm/hr (0-20)
[2023-02-05 17:44] LABS: ALBUMIN 2.8 G/DL (3.2-5.2); BILIRUBIN,DIRECT 0.5 MG/DL (<0.4); BILIRUBIN,TOTAL 1.2 MG/DL (0.3-1.2); CALCIUM LEVEL 8.7 MG/DL (8.3-10.6); CREATININE FOR GFR 1.78 MG/DL (0.70-1.30); GLOMERULAR FILTRATION RATE 40.9 (>49); POTASSIUM SERUM 4.3 MMOL/L (3.5-5.1); TOTAL PROTEIN 6.2 G/DL (5.7-8.2)
[2023-02-05 19:18] LABS: RSV AMPLIFICATION NEGATIVE (NEGATIVE)
[2023-02-05] MEDS ORDERED: NS 1,000 ML IV ONE (19:40)
[2023-02-05] MEDS ORDERED: ISOVUE-370 76% 100ML VIAL As Ordered ONE (19:52)
== END 2023-02-05 21:43 | disposition home or self-care (01) ==
LOC: EDBD 15:59 → M ED 15:59
DX: T81.31XA Disruption of external operation (surgical) wound, not elsewhere classified, initial encounter (principal); S21.109A Unspecified open wound of unspecified front wall of thorax without penetration into thoracic cavity, initial encounter; E11.9 Type 2 diabetes mellitus without complications; Z79.4 Long term (current) use of insulin; I10 Essential (primary) hypertension; E78.5 Hyperlipidemia, unspecified; K21.9 Gastro-esophageal reflux disease without esophagitis; Z95.5 Presence of coronary angioplasty implant and graft; Z88.8 Allergy status to other drugs, medicaments and biological substances; Z79.899 Other long term (current) drug therapy; Z98.890 Other specified postprocedural states
CPT/HCPCS: 11042; 36415; 71260; 80048; 80076; 83605; 85025; 85610; 85652; 85730; 86140; 87040; 87070; 87077; 87186; 87205; 87631; 93041; 94760; 99284; Q9967

== ENCOUNTER 2023-05-18 07:07 | Emergency (ER) | payer MEDICARE, MEDICAID ==
[~2023-05-18] VITALS: Ht 188 cm; Wt 154.6 kg
[~2023-05-18 07:07] MED LIST changes: +HYDR-161; -HYDR-3910 PO; -HYDR10TAB; +HYDR25TA87 PO
[2023-05-18 08:50] LABS: BASO % 0.3 % (0.0-1.0); EOS # 0.2 10^3/uL (0.0-0.5); EOS % 1.5 % (0.0-3.0); HEMOGLOBIN 13.1 g/dl (13.5-17.5); LYMPH # 0.5 10^3/uL (1.5-5.0); MEAN CORPUSCULAR HEMOGLOBIN 29.4 pg (27.0-33.0); MEAN CORPUSCULAR HGB CONC 33.6 g/dl (32.0-36.5); MEAN CORPUSCULAR VOLUME 87.6 fl (80.0-96.0); MONO # 0.7 10^3/uL (0.0-0.8); MONO % 6.9 % (2.0-8.0); NEUTROPHILS # 8.4 10^3/uL (1.5-8.5); PLATELET COUNT, AUTOMATED 161 10^3/uL (150-450); RED BLOOD COUNT 4.45 10^6/uL (4.30-6.10); WHITE BLOOD COUNT 9.7 10^3/uL (4.0-10.0)
[2023-05-18 09:00] LABS: APPEARANCE, URINE CLEAR (CLEAR); BACTERIA, URINE AUTO NEGATIVE (NEGATIVE); BILIRUBIN, URINE AUTO NEGATIVE (NEGATIVE); BLOOD, URINE BLOOD 1+ (NEGATIVE); COLOR, URINE YELLOW (YELLOW); GLUCOSE, URINE (UA) AUTO 2+ mg/dL (NEGATIVE); KETONE, URINE AUTO NEGATIVE (NEGATIVE); LEUKOCYTE ESTERASE, URINE AUTO NEGATIVE (NEGATIVE); MUCUS, URINE SMALL (NEGATIVE); NITRITE, URINE AUTO NEGATIVE (NEGATIVE); PROTEIN, URINE AUTO 3+ mg/dL (NEGATIVE); RBC, URINE AUTO 3 /HPF (0-3); SPECIFIC GRAVITY URINE AUTO 1.015 (1.002-1.035); SQUAMOUS EPITHELIAL CELL UR AU 0 /HPF (0-6); UROBILINOGEN, URINE AUTO 0.2 mg/dL (0.0-2.0); WBC, URINE AUTO 1 /HPF (0-3)
[2023-05-18 09:14] LABS: BILIRUBIN,DIRECT 0.6 MG/DL (<0.4); BILIRUBIN,TOTAL 1.5 MG/DL (0.3-1.2); CALCIUM LEVEL 8.4 MG/DL (8.3-10.6); CREATININE FOR GFR 1.66 MG/DL (0.70-1.30); GLOMERULAR FILTRATION RATE 44.3 (>49); POTASSIUM SERUM 4.6 MMOL/L (3.5-5.1)
[2023-05-18] MEDS: NS 500 ML IV ONE (09:15)
[2023-05-18] MEDS: ACETAMINOPHEN 325 MG TAB PO ONE (09:15)
[2023-05-18 09:25] LABS: PROCALCITONIN 0.14 ng/ml
[2023-05-18 09:44] LABS: ERYTHROCYTE SEDIMENTATION RATE 32 mm/hr (0-20)
[2023-05-18] MEDS: FUROSEMIDE 100MG/10ML VIAL IV ONE (12:25)
[2023-05-18] MEDS: AZTREONAM 2 GM in D5W MINI-BAG PLUS 50 ML IV ONE (12:55)
[2023-05-18 17:12] VITALS: BP 170/87; TEMP 100.5; O2SAT 98
== END 2023-05-18 17:33 | disposition short-term general hospital (02) ==
LOC: M ED 07:07 → EDBD 07:07 → M ED 17:33
DX: L03.116 Cellulitis of left lower limb (principal); J98.51 Mediastinitis; I50.9 Heart failure, unspecified; I10 Essential (primary) hypertension; M54.50 Low back pain, unspecified; N40.0 Benign prostatic hyperplasia without lower urinary tract symptoms; K21.9 Gastro-esophageal reflux disease without esophagitis; Z88.1 Allergy status to other antibiotic agents; Z88.8 Allergy status to other drugs, medicaments and biological substances; Z91.048 Other nonmedicinal substance allergy status; Z79.82 Long term (current) use of aspirin; Z79.4 Long term (current) use of insulin; Z79.899 Other long term (current) drug therapy; Z79.02 Long term (current) use of antithrombotics/antiplatelets
CPT/HCPCS: 71045; 71250; 80048; 80076; 81001; 82150; 83605; 83880; 84145; 85025; 85652; 86140; 87040; 87077; 87088; 87186; 87486; 87581; 87633; 87798; 96361; 96374; 96375; 99284; J0457; J1940

== ENCOUNTER → 2023-12-13 | Outpatient (CLI) | payer MEDICARE, MEDICAID | LOC: M RAD 14:46 | PROVIDERS: ATTEND Registered Nurse | DX: R91.1 Solitary pulmonary nodule (principal); J84.10 Pulmonary fibrosis, unspecified ==

== ENCOUNTER → 2024-01-11 | Outpatient (REF) | payer MEDICARE, MEDICAID ==
[2024-01-11 18:54] LABS: CREATININE,RANDOM URINE 35.1 MG/DL; TOTAL PROTEIN,RANDOM URINE 156.6 MG/DL (0.0-14.0)
== END ==
LOC: M LAB REF 16:58
PROVIDERS: ATTEND Internal Medicine Nephrology
DX: E11.22 Type 2 diabetes mellitus with diabetic chronic kidney disease (principal); N18.9 Chronic kidney disease, unspecified

== ENCOUNTER 2024-03-14 07:24 | Emergency (ER) | payer MEDICAID, MEDICARE ==
[~2024-03-14] VITALS: Ht 188 cm; Wt 141.8 kg
[2024-03-14 08:02] LABS: BASO % 0.6 % (0.0-1.0); EOS # 0.3 10^3/uL (0.0-0.5); EOS % 4.1 % (0.0-3.0); HEMATOCRIT 38.4 % (42.0-52.0); HEMOGLOBIN 13.3 g/dl (13.5-17.5); LYMPH # 1.1 10^3/uL (1.5-5.0); LYMPH % 15.6 % (24.0-44.0); MEAN CORPUSCULAR HEMOGLOBIN 29.6 pg (27.0-33.0); MEAN CORPUSCULAR HGB CONC 34.6 g/dl (32.0-36.5); MEAN CORPUSCULAR VOLUME 85.5 fl (80.0-96.0); MONO # 0.6 10^3/uL (0.0-0.8); MONO % 8.5 % (2.0-8.0); NEUTROPHILS # 4.8 10^3/uL (1.5-8.5); NEUTROPHILS % 70.8 % (36.0-66.0); PLATELET COUNT, AUTOMATED 152 10^3/uL (150-450); RED BLOOD COUNT 4.49 10^6/uL (4.30-6.10); WHITE BLOOD COUNT 6.8 10^3/uL (4.0-10.0)
[2024-03-14] MEDS ORDERED: DILT120C31 (08:10)
[2024-03-14] MEDS ORDERED: HUMA100I5 (08:10)
[2024-03-14 09:27] LABS: ALBUMIN 2.2 G/DL (3.2-5.2); BILIRUBIN,DIRECT 0.3 MG/DL (<0.4); BILIRUBIN,TOTAL 0.8 MG/DL (0.3-1.2); CALCIUM LEVEL 7.7 MG/DL (8.3-10.6); CK-MB VALUE MASS 2.4 NG/ML (<3.6); CREATININE FOR GFR 1.61 MG/DL (0.70-1.30); GLOMERULAR FILTRATION RATE 45.8 (>49); MB/CK RELATIVE INDEX 3.11 (< OR =4); POTASSIUM SERUM 3.7 MMOL/L (3.5-5.1)
[2024-03-14 10:16] LABS: CK-MB VALUE MASS 2.9 NG/ML (<3.6)
[2024-03-14 10:18] LABS: MB/CK RELATIVE INDEX 3.71 (< OR =4)
[2024-03-14] MEDS ORDERED: ISOVUE-370 76% 100ML VIAL As Ordered ONE (11:14)
[2024-03-14 14:29] VITALS: BP 172/62; TEMP 98.5; O2SAT 97
== END 2024-03-14 14:50 | disposition home or self-care (01) ==
LOC: M ED 07:24 → EDBD 07:24 → M ED 14:50
DX: R07.9 Chest pain, unspecified (principal); I25.10 Atherosclerotic heart disease of native coronary artery without angina pectoris; I50.9 Heart failure, unspecified; I25.2 Old myocardial infarction; E11.9 Type 2 diabetes mellitus without complications; I10 Essential (primary) hypertension; E78.5 Hyperlipidemia, unspecified; G47.33 Obstructive sleep apnea (adult) (pediatric); D50.9 Iron deficiency anemia, unspecified; N18.30 Chronic kidney disease, stage 3 unspecified; J30.89 Other allergic rhinitis; Z95.1 Presence of aortocoronary bypass graft; Z79.82 Long term (current) use of aspirin; Z79.899 Other long term (current) drug therapy; Z88.8 Allergy status to other drugs, medicaments and biological substances
CPT/HCPCS: 71045; 71275; 80048; 80076; 82550; 82553; 83690; 84484; 85025; 93005; 93041; 94760; 99285; Q9967

== ENCOUNTER → 2024-06-30 | Outpatient (REF) | payer MEDICARE, MEDICAID ==
[~2024-06-30] MED LIST changes: +DILT120C31; +HUMA100I5
[2024-06-30 17:44] LABS: MAGNESIUM LEVEL 1.9 MG/DL (1.8-2.4); PSA SCREENING 0.35 NG/ML (< 4.00)
[2024-06-30 17:48] LABS: HEMOGLOBIN A1c 9.4 % (4.0-6.0); TOTAL 25(OH) VITAMIN D 34.5 NG/ML (20.0-100.0)
== END ==
LOC: M LAB REF 16:57
PROVIDERS: ATTEND Registered Nurse
DX: E11.65 Type 2 diabetes mellitus with hyperglycemia (principal); E55.9 Vitamin D deficiency, unspecified; E83.42 Hypomagnesemia; Z12.5 Encounter for screening for malignant neoplasm of prostate
CPT/HCPCS: 82306; 83036; 83735; G0103

== ENCOUNTER → 2024-12-25 | Outpatient (CLI) | payer MEDICARE, MEDICAID ==
[~2024-12-25] MED LIST changes: -AMBI10TA PO; -COLC0.6T47; +COLC0.6T53; +ZOLP-533 PO
== END ==
LOC: M RAD 09:01
PROVIDERS: ATTEND Registered Nurse
DX: R91.1 Solitary pulmonary nodule (principal); J84.10 Pulmonary fibrosis, unspecified